=== PATIENT | female | born 1970 | race Caucasian/White ===

== ENCOUNTER 2022-12-13 14:01 | Emergency (ER) | payer OTHER ==
[~2022-12-13] VITALS: Ht 157.5 cm; Wt 90.7 kg
[2022-12-13] MEDS ORDERED: ZEBUTAL 50-3251 EACH (14:28)
[2022-12-13] MEDS ORDERED: PEPCID AC20 MG PO (14:28)
[2022-12-13] MEDS ORDERED: PROAIR RESPICL90 MCG (14:29)
[2022-12-13] MEDS ORDERED: ATIVAN1 M1 (14:29)
[2022-12-13] MEDS ORDERED: ALL DAY ALLERGY10 M3 (14:29)
[2022-12-13] MEDS ORDERED: ZOLOFT100 MG (14:30)
[2022-12-13] MEDS ORDERED: SINGULAIR10 MG (14:31)
== END 2022-12-13 16:46 | disposition home or self-care (01) ==
LOC: ER 14:01
DX: S80.01XA Contusion of right knee, initial encounter (principal); S90.111A Contusion of right great toe without damage to nail, initial encounter; W19.XXXA Unspecified fall, initial encounter; Y93.9 Activity, unspecified; Y92.89 Other specified places as the place of occurrence of the external cause; Y99.9 Unspecified external cause status; Z88.8 Allergy status to other drugs, medicaments and biological substances; Z91.048 Other nonmedicinal substance allergy status